=== PATIENT | male | born 1960 | race Caucasian/White ===

== ENCOUNTER 2017-04-11 09:30 | Emergency (ER) | payer OTHER ==
[2017-04-11 09:46] VITALS: RESP 16
--- NOTE | 2017-04-11 10:02 | EDPHY ---
General - History Smoking Status: Never smoked Narrative: CHIEF COMPLAINT: "something ain't right in there" HISTORY OF PRESENT ILLNESS: Patient complains of right-sided pain. This is right upper quadrant into the right lower ribs. Has been present for nearly a year but steadily worsening over the past month. Moderate to severe. No nausea or vomiting. No chest pain. No shortness of breath. No lower abdominal pain. No trauma or injury. He did report "getting a bear hug last year that started all of this." He was seen last year with x-rays and CT scans that were negative for any rib injuries. Since then he has not had a formal workup. Over the past month it has began to worsen without any inciting injury. No extremity erythema edema or pain. No history of venous thrombolic event. No other associated complaints or modifying factors. REVIEW OF SYSTEMS: Ten systems reviewed and are negative unless otherwise noted in the HPI PCP: Dr. Matute in [place] SPECIALISTS: Dr. Estelita Moffett PAST MEDICAL HISTORY: AFib, hypertension, anxiety PAST SURGICAL HISTORY: Cardiac ablation x3 SOCIAL HISTORY: Nonsmoker. Occasional alcohol. No drug use. Works as an independent business business team leader, doing [employer] FAMILY HISTORY: Noncontributory EXAMINATION General Appearance: Alert, no distress Head: normocephalic, atraumatic Eyes: Pupils equal and round, no conjunctival pallor or injection ENT, Mouth: Mucous membranes moist. Airway patent Neck: Normal inspection, supple, non-tender Respiratory: Lungs are clear to auscultation. No wheeze, rhonchi or crackles Cardiovascular: Regular rate and rhythm. No murmur Gastrointestinal: Obese Abdomen is soft and nontender. No tympany. No rigidity. No guarding. Mild right upper quadrant tenderness. No CVA tenderness Back: non-tender, no bony abnormalities Neurological: A&O, nonfocal, normal gait. Strength is symmetric in all 4 limbs Skin: Warm and dry, no rash. No petechiae or purpura Extremities: There is tenderness on the right anterior axillary line over the lower ribs, 10 through 11. No extremity tenderness. Range of motion is symmetric in the extremities. No evidence of DVT. Psychiatric: Mood and affect normal DIFFERENTIAL DIAGNOSES: Including but not limited to rib injury, cholecystitis, cholelithiasis, renal colic, colitis, pancreatitis MDM: 10:00 a.m. Right upper quadrant and right lower rib pain that is reproducible with palpation. Benign abdominal examination. Vital signs are within normal limits. I have ordered IV placement, laboratory studies and chest x-ray to look at the reproducible right rib pain. He is in no acute distress. 10:45 a.m. CBC, urinalysis and urine microscopy are unremarkable. Chest x-ray as read by me reveals no acute finding. Chemistry is pending. 11:55 a.m. Contacted by radiologist Dr. Tidwell. Ultrasound of the gallbladder reveals mild sludge. No stones. Normal appearance of the common bile duct. Some fatty infiltration of the liver. Case discussed with Dr. Kruger. 12:40 p.m. Patient re-evaluated I discussed the laboratory study findings, chest x-ray findings, ultrasound findings. We discussed that this may or may not explain the patient's pain. He remains well appearing, in no acute distress. He is working on his laptop in the bed. I do not feel he warrants a CT scan at this time. I do not feel that the risks outweigh the benefits. I do feel that the patient is stable for discharge home with short course of pain medication follow up with general surgeon and his established primary physician. We discuss return to emergency department precautions including worsening pain, fever, shortness of breath, any chest pain of any kind the patient and his significant other at bedside are both comfortable this plan. He will be discharged home stable condition. Case was discussed with Dr. Kruger prior to discharge home, and she agrees with this disposition. SUPERVISION: Patient was independently examined, but I discussed the case with my secondary supervising physician Dr. Kruger ([facility]) Discussion: The patient was evaluated and managed by the Physician [employer]. I discussed the patient's presentation and course with the midlevel provider with them and agree with the evaluation. My co-signature indicates that I have reviewed this chart and I agree with the findings and plan of care as documented. I am the secondary supervising physician. (Monika Kruger) - Objective Vital Signs: Initial Vital Signs Temperature (C) 36.6 C 04/11/17 09:35 Heart Rate 68 04/11/17 09:35 Respiratory Rate 16 04/11/17 09:35 Blood Pressure 143/93 H 04/11/17 09:35 O2 Sat (%) 95 04/11/17 09:35 O2 Delivery Mode Room Air Allergies/Adverse Reactions: No Known Allergies Allergy (Verified 04/11/17 09:40) Home Medications: Medication Instructions Recorded ALPRAZolam [Xanax 0.5 MG (*)] 0.5 mg PO 04/11/17 Carvedilol 12.5 mg PO 04/11/17 Escitalopram Oxalate [Lexapro] 10 mg PO 04/11/17 Omeprazole [Prilosec 20 mg] 20 mg PO DAILY 04/11/17 Rivaroxaban [Xarelto 10mg (*)] 20 mg PO DAILY 04/11/17 Rosuvastatin Calcium [Crestor 40mg 40 mg PO DAILY 04/11/17 (*)] buPROPion XL [Wellbutrin Xl] 150 mg PO DAILY 04/11/17 oxyCODONE HCL/ACETAMINOPHEN 1 each PO Q4-6PRN PRN #19 tablet 04/11/17 [Percocet 5-325 mg Tablet] Laboratory Results: Laboratory Results 04/11/17 10:10 04/11/17 10:10 Departure - Departure Disposition: Home, Routine, Self-Care Clinical Impression: RUQ abdominal pain, Biliary sludge determined by ultrasound Condition: Good Instructions: Biliary Colic (ED), Abdominal Pain (ED) Additional Instructions: 1. Contact the on-call general surgeon to discuss the possibility for need of cholecystectomy 2. Contact primary care physician for further workup 3. ED precautions as discussed Referrals: Ranjith Diaz MD [Medical Doctor] - As per Instructions Prescriptions: oxyCODONE HCL/ACETAMINOPHEN [Percocet 5-325 mg Tablet] 1 each PO Q4-6PRN PRN # 19 tablet PRN Reason: Pain, Breakthrough
[2017-04-11 10:22] LABS: % IMMATURE GRANULYOCYTES 0.4 % (0.0-1.1); ABSOLUTE IMMATURE GRANULOCYTES 0.02 10^3/uL (0.00-0.10); ADD DIFF? NO; ADD MORPH? NO; ADD SCAN? NO; ATYPICAL LYMPHOCYTE FLAG 10 (0-99); FRAGMENT RBC FLAG 0 (0-99); HEMATOCRIT 44.5 % (40.0-51.0); HEMOGLOBIN 14.6 g/dL (13.7-17.5); LEFT SHIFT FLG 0 (0-99); LIPEMIA HEMOLYSIS FLAG 80 (0-99); MEAN CELL HEMOGLOBIN 28.4 pg (27.9-34.1); MEAN CELL HEMOGLOBIN CONCENTR. 32.8 g/dL (32.4-36.7); MEAN CELL VOLUME 86.6 fL (81.5-99.8); MEAN PLATELET VOLUME 9.5 fL (8.7-11.7); PLATELET CLUMPS FLAG 0 (0-99); PLATELET COUNT 265 10^3/uL (150-400); RED BLOOD CELL COUNT 5.14 10^6/uL (4.40-6.38); RED CELL DISTRIBUTION WIDTH 15.7 % (11.5-15.2)
[2017-04-11 10:32] LABS: APTT 38.8 SEC (23.0-38.0); INR 1.19 (0.83-1.16); PROTIME(PATIENT) 15.3 SEC (12.0-15.0)
[2017-04-11 10:34] LABS: COLOR YELLOW; LEUKOCYTE ESTERASE,URINE NEGATIVE (NEGATIVE); MUCUS TRACE /lpf (NONE-1+); NITRITE,URINE NEGATIVE (NEGATIVE)
[2017-04-11 10:51] LABS: ALANINE AMINOTRANSFERASE 99 IU/L (21-72); ALBUMIN 4.6 g/dL (3.5-5.0); ALKALINE PHOSPHATASE 69 IU/L (38-126); ANION GAP 16 mEq/L (8-16); ASPARTATE AMINOTRANSFERASE 56 IU/L (17-59); BILIRUBIN,TOTAL 0.6 mg/dL (0.1-1.4); BILIRUBIN-CONJUGATED 0.3 mg/dL (0.0-0.5); BILIRUBIN-UNCONJUGATED 0.3 mg/dL (0.0-1.1); CARBON DIOXIDE 24 mEq/l (22-31); CHLORIDE 102 mEq/L (97-110); CREATININE 1.2 mg/dL (0.7-1.3); GLOMERULAR FILTRATION RATE > 60; GLUCOSE 105 mg/dL (70-100); POTASSIUM 4.6 mEq/L (3.5-5.2); SODIUM 142 mEq/L (134-144); TOTAL PROTEIN 7.9 g/dL (6.3-8.2)
[2017-04-11 13:00] VITALS: BP 138/76; PULSE 81; TEMP 97.7; O2SAT 97
== END 2017-04-11 13:00 | disposition home or self-care (01) ==
DX: R10.11 Right upper quadrant pain (principal); R93.2 Abnormal findings on diagnostic imaging of liver and biliary tract; I10 Essential (primary) hypertension

== ENCOUNTER → 2017-05-05 | Outpatient (CLI) | payer OTHER ==
[~2017-05-05] MED LIST: IOPAMIDOL (ISOVUE-300) 100 ML BTL ONE
== END ==
LOC: FIMAGING 10:06
PROVIDERS: ATTEND Surgery
DX: R10.11 Right upper quadrant pain (principal); K76.0 Fatty (change of) liver, not elsewhere classified; Q76.49 Other congenital malformations of spine, not associated with scoliosis
CPT/HCPCS: Q9967